=== PATIENT | male | born 1960 | race Caucasian/White ===

== ENCOUNTER → 2016-10-23 | Outpatient (CLI) | payer OTHER ==
[~2016-10-23] MED LIST: ABILIFY10 MG PO; ABILIFY5 MG PO; ADVAIR HFA 115-28 GM INH; ALBUTEROL2.5 MG/3 M INH; ASPIR 8181 MG PO; ATROVENT INH S2.5 ML INH; CEFDINIR300 MG PO; CHLORTHALIDONE25 MG PO; COLACE 100MG C100 MG PO; COMBIVENT INHALE4 GM INH; COREG 25MG TAB25 MG PO; DALIRESP500 MCG PO; DIOVAN160 MG PO; IBUPROFEN600 MG PO; ISOSORBIDE MONO20 MG PO; JANUVIA 100 MG100 MG PO; JANUVIA100 MG PO; LIORESAL TAB 1010 MG PO; LIPITOR TAB 2020 MG PO; LISINOPRIL10 MG PO; LISINOPRIL20 MG PO; MAG-OX 400 TAB400 MG PO; MEDROL4 MG PO; NITROSTAT0.4 MG SL; NORVASC 5 MG TAB5 MG PO; PROVENTIL HFA 61 INH INH; QUETIAPINE FUM200 MG PO; RANEXA1000 MG PO; REMERON30 MG PO; SEROQUEL100 MG PO; SERTRALINE HCL100 MG PO; TESSALON PERLE100 MG PO; TYLENOL 325MG325 MG PO; VALSARTAN160 MG PO; VENTOLIN/PROVE0.5 ML INH; VISTARIL25 MG PO; ZITHROMAX250 MG PO; ZOLOFT100 MG PO
== END ==
LOC: RAD 10:59
DX: M51.36 Other intervertebral disc degeneration, lumbar region (principal); R04.2 Hemoptysis; R60.0 Localized edema
CPT/HCPCS: 71020

== ENCOUNTER → 2016-10-23 | Outpatient (CLI) | payer OTHER | LOC: KOH-I 11:44 | DX: R60.0 Localized edema (principal); E11.42 Type 2 diabetes mellitus with diabetic polyneuropathy; E11.65 Type 2 diabetes mellitus with hyperglycemia; E11.69 Type 2 diabetes mellitus with other specified complication; E78.2 Mixed hyperlipidemia; E87.1 Hypo-osmolality and hyponatremia; G44.89 Other headache syndrome; G89.4 Chronic pain syndrome; I10 Essential (primary) hypertension; I25.10 Atherosclerotic heart disease of native coronary artery without angina pectoris; I65.22 Occlusion and stenosis of left carotid artery; J15.8 Pneumonia due to other specified bacteria; J44.1 Chronic obstructive pulmonary disease with (acute) exacerbation; K52.89 Other specified noninfective gastroenteritis and colitis; L03.116 Cellulitis of left lower limb; M13.812 Other specified arthritis, left shoulder; M15.8 Other polyosteoarthritis; M50.30 Other cervical disc degeneration, unspecified cervical region; M51.36 Other intervertebral disc degeneration, lumbar region; M54.5 Low back pain; R35.1 Nocturia; R05 Cough; R55 Syncope and collapse; R63.4 Abnormal weight loss; R80.8 Other proteinuria; S20.211D Contusion of right front wall of thorax, subsequent encounter; S46.912A Strain of unspecified muscle, fascia and tendon at shoulder and upper arm level, left arm, initial encounter | CPT/HCPCS: 93970 ==

== ENCOUNTER → 2016-10-31 | Outpatient (CLI) | payer OTHER | LOC: KOH-I 08:48 | DX: M54.5 Low back pain (principal); E11.42 Type 2 diabetes mellitus with diabetic polyneuropathy; E11.65 Type 2 diabetes mellitus with hyperglycemia; E11.69 Type 2 diabetes mellitus with other specified complication; E78.2 Mixed hyperlipidemia; E87.1 Hypo-osmolality and hyponatremia; G44.89 Other headache syndrome; G89.4 Chronic pain syndrome; I10 Essential (primary) hypertension; I25.10 Atherosclerotic heart disease of native coronary artery without angina pectoris; I65.22 Occlusion and stenosis of left carotid artery; J15.8 Pneumonia due to other specified bacteria; J20.8 Acute bronchitis due to other specified organisms; J44.1 Chronic obstructive pulmonary disease with (acute) exacerbation; K52.89 Other specified noninfective gastroenteritis and colitis; L03.116 Cellulitis of left lower limb; M13.812 Other specified arthritis, left shoulder; M15.8 Other polyosteoarthritis; M50.30 Other cervical disc degeneration, unspecified cervical region; M51.36 Other intervertebral disc degeneration, lumbar region; R05 Cough; R35.1 Nocturia; R55 Syncope and collapse; R60.0 Localized edema; R63.4 Abnormal weight loss; R80.8 Other proteinuria; S20.211D Contusion of right front wall of thorax, subsequent encounter; S46.912A Strain of unspecified muscle, fascia and tendon at shoulder and upper arm level, left arm, initial encounter; M51.26 Other intervertebral disc displacement, lumbar region; M99.63 Osseous and subluxation stenosis of intervertebral foramina of lumbar region | CPT/HCPCS: 72148 ==